=== PATIENT | female | born 1985 | race Caucasian/White ===

== ENCOUNTER 2017-04-11 21:03 | Emergency (ER) | payer OTHER ==
[2017-04-11 21:03] VITALS: BMI 52.4
[2017-04-11 21:53] VITALS: BP 109/69
--- NOTE | 2017-04-11 22:23 | ED PDOC ---
Arrival/HPI <Moustapha Rodriguez - Last Filed: 04/11/17 22:35> - General Historian: Patient <Catalina Spring - Last Filed: 04/12/17 01:21> - General Chief Complaint: Medical Clearance Time Seen by Provider: 04/11/17 22:11 - History of Present Illness Narrative History of Present Illness (Text): 04/11/17 22:16 Patient is a 31 year old F with pmh of hypothyroidism, RA, morbidly obese, h/o migraines, h/o UTIs ( last treatment was 6 months ago) presenting with 4 days of suprapubic pain, dysurea, and hematuria. Patient is also complaining of 2 days of fever, reports the highest was 102 at home, relieved with tylenol. patient states she hasn't been able to sleep due to the pain. Admits to b/l flank pain. Patient reports she is not sexually active, LMP was March 12. Denies vaginal discharge, denies odor of the vaginal area. Denies n/v/d, denies headaches, dizziness. Denies cp or sob. Denies cough. Patient doesn't remember the name of the antibiotics she was giving last time she had the uti. 04/11/17 22:23 (Catalina Spring) Past Medical History - Provider Review Nursing Documentation Reviewed: Yes - Travel History Have you recently traveled outside [place] w/in the past 3 mons?: No - Infectious Disease Hx of Infectious Diseases: None - Tetanus Immunization Tetanus Immunization: Unknown - Cardiac Hx Cardiac Disorders: No - Pulmonary Hx Respiratory Disorders: No - Neurological Hx Neurological Disorder: Yes (Lymes Disease) Hx Migraine: Yes - HEENT Hx HEENT Disorder: No - Renal Hx Renal Disorder: No - Endocrine/Metabolic Hx Endocrine Disorders: Yes Hx Hypothyroidism: Yes - Hematological/Oncological Hx Blood Disorders: Yes Other/Comment: Lyme disease - Integumentary Hx Dermatological Disorder: No - Musculoskeletal/Rheumatological Hx Musculoskeletal Disorders: Yes Hx Arthritis: Yes Hx Rheumatoid Arthritis: Yes - Gastrointestinal Hx Gastrointestinal Disorders: No - Genitourinary/Gynecological Hx Genitourinary Disorders: No - Psychiatric Hx Psychophysiologic Disorder: No Hx Substance Use: No - Suicidal Assessment Feels Threatened In Home Enviroment: No <Catalina Spring - Last Filed: 04/12/17 01:21> Family/Social History - Physician Review Nursing Documentation Reviewed: Yes Family/Social History: Hypertension, CAD/CO Smoking Status: Never Smoked Hx Alcohol Use: No Hx Substance Use: No <SusanneCatalina richter - Last Filed: 04/12/17 01:21> Allergies/Home Meds <Moustapha Rodriguez - Last Filed: 04/11/17 22:35> <Catalina Spring - Last Filed: 04/12/17 01:21> Allergies/Adverse Reactions: Allergies shrimp Allergy (Verified 01/07/16 17:58) RASH Home Medications: Home Meds Medication Instructions Recorded Confirmed No Known Home Med 04/11/17 04/11/17 Review of Systems - Review of Systems Constitutional: Fevers Eyes: Normal ENT: Normal Respiratory: Normal Cardiovascular: Edema (of the right ankle.). absent: Chest Pain, Palpitations, Calf Pain, Orthopnea, Syncope Gastrointestinal: Abdominal Pain (suprapubic ). absent: Constipation, Nausea, Vomiting Genitourinary Female: Dysuria, Frequency, Hematuria. absent: Vaginal Bleeding, Vaginal Discharge Musculoskeletal: Joint Swelling Skin: Normal Neurological: Normal Endocrine: Normal Hemo/Lymphatic: Normal Psychiatric: Normal <RupinderleslyCatalina richter - Last Filed: 04/12/17 01:21> Physical Exam Vital Signs Reviewed: Yes Temperature: Afebrile Blood Pressure: Normal Pulse: Regular Respiratory Rate: Normal Appearance: Positive for: Well-Appearing, Non-Toxic, Comfortable Pain Distress: Mild Mental Status: Positive for: Alert and Oriented X 3 - Systems Exam Head: Present: Atraumatic, Normocephalic Pupils: Present: PERRL Extroacular Muscles: Present: EOMI Mouth: Present: Moist Mucous Membranes Neck: Present: Normal Range of Motion Respiratory/Chest: Present: Clear to Auscultation, Good Air Exchange, Respiratory Distress. No: Accessory Muscle Use Cardiovascular: Present: Regular Rate and Rhythm, Normal S1, S2. No: Murmurs Abdomen: Present: Tenderness (suprapubic ), Normal Bowel Sounds. No: Distention (obese abdomen), Rebound, Guarding Back: Present: CVA Tenderness (b/l), Pain with Leg Raise Upper Extremity: Present: Normal Inspection. No: Edema Lower Extremity: Present: Normal Inspection, Tenderness (of the right ankle. ). No: Edema, CALF TENDERNESS Neurological: Present: GCS=15 Skin: Present: Warm, Dry, Normal Color. No: Rashes Psychiatric: Present: Alert, Oriented x 3, Normal Insight, Normal Concentration <Catalina Spring - Last Filed: 04/12/17 01:21> Vital Signs Temp Pulse Resp BP Pulse Ox 04/11/17 21:52 98.1 F 73 16 109/69 99 Medical Decision Making - Lab Interpretations I have reviewed the lab results: Yes - RAD Interpretation Manager: ED Physician <Moustapha Rodriguez - Last Filed: 04/11/17 22:35> Re-evaluation Time: 01:05 Reassessment Condition: Re-examined, Improving,but remains with symptoms - Lab Interpretations I have reviewed the lab results: Yes Interpretation: All labs normal - RAD Interpretation Manager: ED Physician <Catalina Spring - Last Filed: 04/12/17 01:21> ED Course and Treatment: Impression: Pt seen and evaluated with resident medical officer. Pt, whose past medical history includes hypothyroidism, rheumatoid arthritis, migraines, UTIs, and morbidly obese, presented for suprapubic pain, dysuria, and hematuria for 4 days with fever x 2 days. Aware and agree with HPI, clinical findings, plan, and management. Plan: -- XR Right Ankle -- CXR -- Labs, Uric acid, blood cultures -- Urinalysis, urine cultures -- IV fluids -- Reassess and disposition Progress Notes: (Moustapha Rodriguez) 04/11/17 22:27 Patient is a 31 year old F with pmh of hypothyroidism, RA, morbidly obese, h/o migraines, h/o UTIs ( last treatment was 6 months ago) presenting with UTI symptoms, along with CVA tenderness and fever. Differentials: Pyelonephritis, ovarian cysts, renal stone. Plan: will obtain ua, ucx, bcx, cbc, cmp. will give NS bolus, will start antibiotics based on ua. Ankle x-ray to rule out fracture. Tylenol for pain will reevaluate. 04/11/17 22:29 (Catalina Spring) - Lab Interpretations Lab Results: 04/11/17 22:40 04/11/17 22:40 Lab Results 04/11/17 22:40: Sodium 138, Potassium 4.1, Chloride 102, Carbon Dioxide 28, Anion Gap 12, BUN 13, Creatinine 0.8, Est GFR ( Amer) > 60, Est GFR (Non- Af Amer) > 60, Random Glucose 94, Uric Acid 6.2, Calcium 9.5, Total Bilirubin 0.5, AST 34, ALT 32, Alkaline Phosphatase 73, Total Protein 7.7, Albumin 3.9, Globulin 3.8, Albumin/Globulin Ratio 1.0 L 04/11/17 22:40: Urine Color Yellow, Urine Appearance Sl cloudy, Urine pH 7.5, Ur Specific [place] 1.015, Urine Protein Negative, Urine Glucose (UA) Negative, Urine Ketones Negative, Urine Blood Small H, Urine Nitrate Negative, Urine Bilirubin Negative, Urine Urobilinogen 0.2, Ur Leukocyte Esterase Negative, Urine RBC 0 - 2, Urine WBC 0 - 2, Ur Epithelial Cells 0 - 2 04/11/17 22:40: WBC 8.0, RBC 4.49, Hgb 12.4, Hct 38.4, MCV 85.5, MCH 27.6, MCHC 32.3, RDW 14.3, Plt Count 202, MPV 12.2 H, Gran % 47.2 L, Lymph % (Auto) 43.9 H , [place] % (Auto) 6.7 H, Eos % (Auto) 1.5, Baso % (Auto) 0.7, Gran # 3.78, Lymph # 3.5 H, [place] # 0.5, Eos # 0.1, Baso # 0.06 - RAD Interpretation Narrative RAD Interpretations (Text): 04/12/17 01:18 Normal chest x-ray, no infiltration or consolidation noted. Ankle x-ray with no fractures. (Catalina Spring) Radiology Orders: 04/11/17 22:15 CHEST ONE VIEW [RAD] Stat ANKLE RIGHT 3 VIEWS ROUTINE [RAD] Stat - Medication Orders Current Medication Orders: Discontinued Medications Sodium Chloride (Sodium Chloride 0.9%) 1,000 mls @ 999 mls/hr IV .[id number] STA Stop: 04/11/17 23:12 Last Admin: 04/11/17 22:43 Dose: 999 mls/hr - PA / TIMBER SIZER / Resident Statement TARA has reviewed & agrees with the documentation as recorded. TARA has examined the patient and agrees with the treatment plan. <Moustapha Rodriguez - Last Filed: 04/11/17 22:35> Disposition/Present on Arrival <Moustpaha Rodriguez - Last Filed: 04/11/17 22:35> - Present on Arrival Any Indicators Present on Arrival: No History of DVT/PE: No History of Uncontrolled Diabetes: No Urinary Catheter: No History of Decub. Ulcer: No History Surgical Site Infection Following: None - Disposition Have Diagnosis and Disposition been Completed?: Yes Disposition Time: 01:20 Patient Plan: Discharge <Catalina Spring - Last Filed: 04/12/17 01:21> - Disposition Diagnosis: Abdominal pain Disposition: HOME/ ROUTINE Condition: STABLE Discharge Instructions (ExitCare): Abdominal Pain (ED) Additional Instructions: Please follow up with pmd Go to the nearest emergency room if you experience chest pain, fever, shortness of breath. Referrals: Deniz Moore MD [Primary Care Provider] - Follow up with primary
[2017-04-11] MEDS: Sodium Chloride 0.9% 1,000 ML IV STA (22:43)
[2017-04-11 22:51] LABS: ADD MANUAL DIFF? NO
[2017-04-11 23:05] LABS: BASO # 0.06 K/mm3 (0.0-2.0); BASO % 0.7 % (0.0-3.0); EOS # 0.1 (0.0-0.7); EOS % 1.5 % (1.5-5.0); GRAN # 3.78 (1.4-6.5); GRAN % 47.2 % (50.0-68.0); HEMATOCRIT 38.4 % (36.0-48.0); LYMPH # 3.5 (1.2-3.4); LYMPH % 43.9 % (22.0-35.0); MEAN CELL VOLUME 85.5 fL (80.0-105.0); MEAN CORPUSCULAR HEMOGLOBIN 27.6 pg (25.0-35.0); MEAN CORPUSCULAR HGB CONC 32.3 g/dl (31.0-37.0); MEAN PLATELET VOLUME 12.2 fl (7.0-11.0); MONO # 0.5 (0.1-0.6); MONO % 6.7 % (1.0-6.0); PLATELET COUNT 202 10^3/uL (120.0-450.0); RED CELL DISTRIBUTION WIDTH 14.3 % (11.5-14.5)
[2017-04-11 23:10] LABS: ALKALINE PHOSPHATASE 73 U/L (38-133); ALT/SGPT 32 U/L (7-56); AST/SGOT 34 U/L (15-39); BILIRUBIN,TOTAL 0.5 mg/dL (0.2-1.3); BLOOD UREA NITROGEN 13 mg/dL (7-21); CALCIUM 9.5 mg/dL (8.4-10.5); CARBON DIOXIDE 28 mmol/L (21-33); CHLORIDE 102 mmol/L (98-107); GFR AFRICAN-AMERICAN > 60; GLUCOSE,RANDOM 94 mg/dL (70-110); POTASSIUM 4.1 mmol/L (3.6-5.0); SODIUM 138 mmol/L (132-148); TOTAL PROTEIN 7.7 g/dL (5.8-8.3); URIC ACID 6.2 mg/dL (2.5-6.2)
[2017-04-11 23:47] LABS: PH,URINE 7.5 (4.7-8.0); URINE BILIRUBIN NEGATIVE (NEGATIVE); URINE BLOOD SMALL (NEGATIVE); URINE GLUCOSE (UA) NEGATIVE (NEGATIVE); URINE KETONE NEGATIVE (NEGATIVE); URINE LEUKOCYTE ESTERASE NEGATIVE Leu/uL (NEGATIVE); URINE PROTEIN NEGATIVE mg/dL (<30 mg/dL); URINE UROBILINOGEN 0.2 E.U./dL (<1 E.U./dL)
[2017-04-11 23:52] LABS: URINE APPEARANCE SL CLOUDY (CLEAR); URINE COLOR YELLOW (YELLOW)
[2017-04-12 00:07] LABS: URINE EPITHELIAL CELLS 0 - 2 /hpf (0-5); URINE RBC 0 - 2 /hpf (0-2); URINE WBC 0 - 2 /hpf (0-6)
[2017-04-12 01:40] VITALS: PULSE 60; RESP 18; TEMP 98.8; O2SAT 100
[2017-04-12] MEDS: Sodium Chloride 0.9% 1,000 ML IV STA (01:40)
--- NOTE | 2017-04-12 08:39 | RAD ---
PROCEDURE: CHEST RADIOGRAPH, 1 VIEW HISTORY: Fever COMPARISON: 01/07/2016 FINDINGS: LUNGS: The lungs are well inflated and clear. PLEURA: No pneumothorax or pleural fluid seen. CARDIOVASCULAR: Normal. OSSEOUS STRUCTURES: No significant abnormalities. VISUALIZED UPPER ABDOMEN: Normal. OTHER FINDINGS: None. IMPRESSION: No acute findings.
--- NOTE | 2017-04-12 09:29 | RAD ---
PROCEDURE: Right Ankle Radiographs. HISTORY: r/o fracture COMPARISON: None FINDINGS: BONES: Normal. No fracture. JOINTS: Normal. No osteoarthritis. Ankle mortise maintained. Talar dome intact SOFT TISSUES: Normal. OTHER FINDINGS: None. IMPRESSION: Normal right ankle radiographs.
== END 2017-04-12 01:41 | disposition home or self-care (01) ==
LOC: ED 21:03
DX: R10.9 Unspecified abdominal pain (principal); E66.01 Morbid (severe) obesity due to excess calories; E03.9 Hypothyroidism, unspecified; M06.9 Rheumatoid arthritis, unspecified
CPT/HCPCS: 71010; 73610; 80053; 81001; 84550; 85025; 87040; 87086; 96360; 96361; 99283; J7040